=== PATIENT | female | born 1950 | race Caucasian/White ===

== ENCOUNTER → 2023-12-26 14:50 | Outpatient (CLI) | payer MEDICARE, MEDICAID, SELFPAY ==
--- NOTE | 2023-12-26 | DI.ECHO.S_ITS ---
[facility]---------+ [facility] : : [id number] 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 2) Mildly to moderately enlarged right ventricle with mildly reduced function. 3) The left atrium is severely dilated. The right atrium is moderately dilated. 4) There is moderate tricuspid regurgitation. 5) The right ventricular systolic pressure is estimated to be at least 61 mmHg based on an estimated right atrial pressure of 15 mm Hg. 6) Compared to the Echo done 06/25/2017, pulmonary hypertension and hypervolemia are present on this study. Procedure: A two-dimensional transthoracic echocardiogram with color flow and Doppler was performed. The study quality was technically difficult. Comparison is made with the echocardiogram of 06/25/2017. The heart rate ranged between 69-99 bpm during the study. Left Ventricle: The left ventricle is normal in size and wall thickness. Proximal septal thickening is noted. The ejection fraction is estimated to be 55-60%. Left ventricular systolic function appears normal without focal wall motion abnormalities. Right Ventricle: The right ventricle is mild to moderately dilated. Right ventricular systolic function is mildly reduced. Atria: The left atrium is severely dilated. The right atrium is moderately dilated. PT HAS KNOWN PFO. Mitral Valve: The mitral valve is normal in structure and function. MAC. There is no mitral valve stenosis. There is trace mitral regurgitation. Aortic Valve: The aortic valve is trileaflet. There is no aortic valve stenosis. There is mild aortic regurgitation. Tricuspid Valve: The tricuspid valve is not well visualized, but is grossly normal. There is no tricuspid stenosis. There is moderate tricuspid regurgitation. The right ventricular systolic pressure is estimated to be at least 61 mmHg based on an estimated right atrial pressure of 15 mm Hg. Pulmonic Valve: The pulmonic valve is not well visualized. There is no pulmonic valvular stenosis. There is trace pulmonic regurgitation. Great Vessels: The aortic root is normal size. The dimensions of the ascending aorta are normal. The IVC is dilated (diameter is greater than 2.1 cm) and it collapses less than 50% with a sniff. This suggests a high right atrial pressure of 15 mm Hg. Pericardium/ Pleura There is no pericardial effusion. There is no pleural effusion. MMode/2D Measurements & Calculations LVIDd: 4.4 cm LVOT diam: 2.3 cm LVIDs: 3.0 cm Ao root diam: 3.5 cm FS: 31.6 % asc Aorta Diam: 3.6 cm IVSd: 1.3 cm Ao Arch Diam (Prox Trans): 3.0 cm LVPWd: 1.0 cm LV paul. diameter/BSA (cm/m^2): 1.7 LV sys. diameter/BSA (cm/m^2): 1.2 LA A2 area: 28.5 cm2 RA long axis: 5.6 cm LA A4 area: 47.0 cm2 RA area: 24.2 cm2 LA length (vol): 8.0 cm RA vol: 89.6 ml LA vol: 141.7 ml RA : 35.4 ml/m2 LA vol index: 55.9 ml/m2 IVC diam: 3.1 cm RVD1 (basal): 4.6 cm RVD2 (mid): 3.9 cm TAPSE: 1.4 cm Doppler Measurements & Calculations Ao V2 max: 174.0 cm/sec LVOT Max William: 130.0 cm/sec Ao V2 mean: 123.9 cm/sec LV V1 max P.8 mmHg Ao max P.1 mmHg LV V1 VTI: 28.1 cm Ao mean P.8 mmHg SU(I,D): 3.2 cm2 Ao V2 VTI: 36.1 cm SU(V,D): 3.1 cm2 sev ratio: 0.78 SU indexed to BSA (cm^2/m^2): 1.3 MV E max william: 131.4 cm/sec TR max william: 339.1 cm/sec MV A max william: 30.3 cm/sec TR max P.0 mmHg MV E/A: 4.3 PA V2 max: 126.3 cm/sec MV dec time: 0.24 sec PA V2 mean: 79.6 cm/sec PA mean P.9 mmHg PA pr(Accel): 57.9 mmHg SV(LVOT): 115.7 ml Reading Physician:05:03 PM
== END ==
PROVIDERS: Family Provider Nurse Practitioner Gerontology; PCP Nurse Practitioner Family; Referring Provider Internal Medicine Cardiovascular Disease; Visit Provider Internal Medicine Cardiovascular Disease
DX: I08.2 Rheumatic disorders of both aortic and tricuspid valves (principal); R07.9 Chest pain, unspecified
CPT/HCPCS: 93306